=== PATIENT | male | born 1940 | race Caucasian/White ===

== ENCOUNTER 2018-06-16 09:47 | Observation (INO) | payer OTHER ==
--- NOTE | 2018-06-16 10:32 | C.PDOC ---
History Of Present Illness 77 year old male with PMHx of HTN and diabetes presents for evaluation of throat pain x8 days associated with subjective fever, chills, and runny nose. The patient reports prior PMD visit for current symptoms who prescribed gabapentin and fexofenadine with no improvement. Pt denies CP, SOB, ABD pain, cough, nausea, vomiting, diarrhea, and any other associated symptoms. Time Seen by Provider: 06/16/18 10:05 Chief Complaint (Nursing): ENT Problem History Per: Patient History/Exam Limitations: no limitations Onset/Duration Of Symptoms: Days Current Symptoms Are (Timing): Still Present Location Of Pain: Throat Associated Symptoms: Fever, Chills, Nasal Congestion, Other (throat pain. ). denies: Cough, Vomiting Ear Symptoms: Bilateral: None Recent travel outside of the [place]: No Past Medical History Vital Signs: Last Vital Signs Temp 99.9 F H 06/16/18 09:51 Pulse 89 06/16/18 09:51 Resp 18 06/16/18 09:51 BP 130/61 06/16/18 09:51 Pulse Ox 98 06/16/18 09:51 - Medical History PMH: Arthritis Family History: States: Unknown Family Hx - Social History Hx Alcohol Use: No Hx Substance Use: No - Immunization History Hx Tetanus Toxoid Vaccination: No Hx Influenza Vaccination: Yes Hx Pneumococcal Vaccination: No Review Of Systems Constitutional: Positive for: Fever (subjective. ), Chills ENT: Positive for: Nose Congestion, Throat Pain Cardiovascular: Negative for: Chest Pain Respiratory: Negative for: Cough, Shortness of Breath Gastrointestinal: Negative for: Nausea, Vomiting, Abdominal Pain, Diarrhea Physical Exam - Physical Exam Appears: Well, Non-toxic, No Acute Distress Skin: Warm, Dry Head: Atraumatic, Normacephalic Eye(s): bilateral: Normal Inspection, right: Other ((+) hearing aid in the RT ear.) Oral Mucosa: Moist Throat: No Erythema, Other ((+) minimal cervical adenopathy.) Neck: Normal ROM, Supple Chest: Symmetrical, No Deformity Cardiovascular: Rhythm Regular, No Murmur Respiratory: Normal Breath Sounds, No Rales, No Rhonchi, No Wheezing Gastrointestinal/Abdominal: Normal Exam, Soft, No Tenderness Extremity: Bilateral: Atraumatic, Normal Color And Temperature, Normal ROM Neurological/Psych: Oriented x3, Normal Speech, Normal Cognition ED Course And Treatment - Laboratory Results Result Diagrams: 06/16/18 12:34 06/16/18 12:34 ECG: Interpreted By Me, Viewed By Me ECG Rhythm: Sinus Rhythm, R BBB Interpretation Of ECG: no EKG to compare to Rate From EC O2 Sat by Pulse Oximetry: 98 (RA) Pulse Ox Interpretation: Normal - Other Rad CXR X-Ray: Viewed By Me, Read By Radiologist Interpretation: FINDINGS: LUNGS: No evidence of focal infiltrate or consolidation in the lungs noted in this portable exam. PLEURA: No significant pleural effusion identified, no pneumothorax apparent. CARDIOVASCULAR: No aortic atherosclerotic calcification present. Normal cardiac size. No pulmonary vascular congestion. OSSEOUS STRUCTURES: No significant abnormalities. VISUALIZED UPPER ABDOMEN: Normal. OTHER FINDINGS: None. IMPRESSION: No definite radiographic evidence of pneumonia. Medical Decision Making Medical Decision Making: Progress/Update: Multiple attempts to contact Dr. Painter with no answer. Progress/Update: Multiple attempts to contact PMD Dr. Painter, left voice message at the office. Pt treated with pharyngitis. (-) STREP throat Pt discharged with instructions on treatment with pharyngitis without significant findings. Discussed with the pt the importance of following up with PMD and possible ENT for further diagnosis. As pt was being prepared for discharge home, a low BP was noticed. Initially systolic was 130, after multiple BP pressure checks systolic dropped to 90. Will draw labs, take a rectal temp and re-evaluate the pt. Pt remained hypertensive after fluid bolus for 50ml. Will administer a second fluid bolus and consider pt admission for observation with the potential that this case may turn into sepsis Refractory hypertension not resolving with fluids Will admit to hospitalist. 2:15 : Spoke with Dr. Lakhwinder Hayden who agreed to patient admission Disposition Counseled Patient/Family Regarding: Need For Followup, Rx Given - Disposition Referrals: Jody Painter MD [Family Provider] - Disposition: HOSPITALIZED Disposition Time: 11:54 Condition: GUARDED Prescriptions: Ibuprofen [Motrin] 600 mg PO TID #15 tab Penicillin VK [Penicillin VK Tab] 500 mg PO TID #30 tab Instructions: Sore Throat, Adult (DC) Forms: [facility] (Czech), Gen Discharge Inst Czech - POA Present On Arrival: None - Clinical Impression Clinical Impression: Hypotension - Scribe Statement The provider has reviewed the documentation as recorded by the Scribe (Blank Vázquez) Provider Attestation: All medical record entries made by the Scribe were at my direction and personally dictated by me. I have reviewed the chart and agree that the record accurately reflects my personal performance of the history, physical exam, medical decision making, and the department course for this patient. I have also personally directed, reviewed, and agree with the discharge instructions and disposition. Decision To Admit - Pt Status Changed To: Hospital Disposition Of: Observation - . Bed Request Type: Telemetry Admitting Physician: Lakhwinder Hayden Patient Diagnosis: Hypotension
[2018-06-16] MEDS ORDERED: Sodium Chloride 0.9% 500 ML IV ONE ×6 (12:20→13:25)
[2018-06-16 12:37] LABS: BASO # 0.1 K/uL (0.0-0.2); BASO % 0.6 % (0.0-2.0); HEMOGLOBIN 10.2 g/dL (12.0-18.0); LYMPH # 2.1 K/uL (1.0-4.3); LYMPH % 17.4 % (20.0-40.0); MEAN CELL VOLUME 85.2 fL (80.0-94.0); MEAN CORPUSCULAR HEMOGLOBIN 29.4 pg (27.0-31.0); MEAN CORPUSCULAR HGB CONC 34.5 g/dL (33.0-37.0); MEAN PLATELET VOLUME 7.2 fL (7.2-11.7); MONO # 1.5 K/uL (0.0-0.8); MONO % 12.3 % (0.0-10.0); NEUT # 8.6 K/uL (1.8-7.0); NEUT % 69.7 % (50.0-75.0); RBC 3.47 Mil/uL (4.40-5.90); RED CELL DISTRIBUTION WIDTH 13.9 % (11.5-14.5); WHITE BLOOD COUNT 12.3 K/uL (4.8-10.8)
[2018-06-16 12:48] LABS: ALB/GLOB RATIO 1.5 (1.0-2.1); ALBUMIN 4.2 g/dL (3.5-5.0); CALCIUM 9.1 mg/dl (8.6-10.4)
[2018-06-16 12:56] LABS: VENOUS BLOOD GAS BASE EXCESS -0.8 mmol/L (0.0-2.0); VENOUS BLOOD GAS PCO2 37 mmHg (40-60); VENOUS BLOOD GAS PO2 34 mm/Hg (30-55); VENOUS BLOOD PH 7.41 (7.32-7.43)
[2018-06-16] MEDS ORDERED: Sodium Chloride 0.9% 1,000 ML IV ONE (13:17)
--- NOTE | 2018-06-16 14:27 | RAD ---
Date of service: 06/16/2018 HISTORY: Sepsis Patient COMPARISON: No prior. TECHNIQUE: 1 view obtained. FINDINGS: LUNGS: No evidence of focal infiltrate or consolidation in the lungs noted in this portable exam PLEURA: No significant pleural effusion identified, no pneumothorax apparent. CARDIOVASCULAR: No aortic atherosclerotic calcification present. Normal cardiac size. No pulmonary vascular congestion. OSSEOUS STRUCTURES: No significant abnormalities. VISUALIZED UPPER ABDOMEN: Normal. OTHER FINDINGS: None. IMPRESSION: No definite radiographic evidence of pneumonia.
[2018-06-16 14:39] LABS: VENOUS BLOOD GAS BASE EXCESS -2.3 mmol/L (0.0-2.0); VENOUS BLOOD GAS PCO2 38 mmHg (40-60); VENOUS BLOOD GAS PO2 43 mm/Hg (30-55); VENOUS BLOOD PH 7.38 (7.32-7.43)
--- NOTE | 2018-06-16 15:29 | CP.PCM.HP ---
<Rojelio Castellon - Last Filed: 06/16/18 16:18> History of Present Illness - History of Present Illness History of Present Illness: Medicine H&P for Dr. Hayden's service CC: Pharyngeal Pain HPI: Patient is a 77 yo male w/ PMH of HTN, HLD, and DM2 presents to emergency department for evaluation of pain in his throat for past 8 days. Patient went to PMD who prescribed an oral antibiotic approximately 5 days ago. Patient states he has been compliant with medications but the pain persists. Stated he took Tylenol for fever but the temperature would spike again. Patient states he also had episodes of vomiting and diarrhea yesterday. Denies chills, chest pain, sob, n/v, constipation or diarrhea, dysuria at this time. ROS: positive for pharyngeal pain, fevers PMH: HTN, HLD, and DM2 PSH: Denies FH: Mother and Father (DM2) Allergies: NKDA Meds: See MAR Social: Denies tobacco use, admits to etoh use when he was much younger, denies illicit drug use; Retired worked as dental hygienist Code: Full code Present on Admission - Present on Admission Any Indicators Present on Admission: No Review of Systems - Review of Systems All systems: reviewed and no additional remarkable complaints except Review of Systems: see HPI Past Patient History - Infectious Disease Hx of Infectious Diseases: None - Past Social History Smoking Status: Never Smoked - ENDOCRINE/METABOLIC Hx Diabetes Mellitus Type 2: Yes - MUSCULOSKELETAL/RHEUMATOLOGICAL Hx Arthritis: Yes - PSYCHIATRIC Hx Substance Use: No - SURGICAL HISTORY Hx Surgeries: Yes Other/Comment: prostate surgery - ANESTHESIA Hx Anesthesia: Yes Hx Anesthesia Reactions: No Hx Malignant Hyperthermia: No Meds Home Medications: Home Medication List Medication Instructions Recorded Confirmed Type Ibuprofen [Motrin] 600 mg PO TID #15 tab 06/16/18 Rx Acetaminophen [Tylenol 325mg tab] 650 mg PO Q6 PRN tab 06/17/18 Rx Allergies/Adverse Reactions: Allergies Allergy/AdvReac Type Severity Reaction Status Date / Time No Known Allergies Allergy Verified 06/16/18 09:56 Physical Exam - Constitutional Appears: Non-toxic, No Acute Distress - Head Exam Head Exam: NORMAL INSPECTION, NORMOCEPHALIC - Eye Exam Eye Exam: EOMI, Normal appearance. absent: Nystagmus - ENT Exam ENT Exam: Mucous Membranes Dry Additional comments: apthous ulcer appearing sore in right lateral tongue on ventral surface no erythema or exudates in posterior pharynx - Neck Exam Neck exam: Positive for: Full Rom, Normal Inspection. Negative for: Lymphadenopathy - Respiratory Exam Respiratory Exam: Clear to Auscultation Bilateral, NORMAL BREATHING PATTERN. absent: Rhonchi, Wheezes - Cardiovascular Exam Cardiovascular Exam: REGULAR RHYTHM, +S1, +S2 - GI/Abdominal Exam GI & Abdominal Exam: Normal Bowel Sounds, Soft. absent: Diminished Bowel Sounds, Distended, Tenderness - Extremities Exam Extremities exam: Positive for: normal inspection. Negative for: calf tenderness, pedal edema - Neurological Exam Neurological exam: Alert, Normal Gait, Oriented x3 - Psychiatric Exam Psychiatric exam: Normal Affect, Normal Mood - Skin Skin Exam: Dry, Intact, Normal Color Results - Vital Signs Recent Vital Signs: Last Vital Signs Temp 98.4 F 06/16/18 15:18 Pulse 60 06/16/18 15:18 Resp 17 06/16/18 15:18 BP 115/53 L 06/16/18 15:18 Pulse Ox 95 06/16/18 15:18 - Labs Result Diagrams: 06/16/18 12:34 06/16/18 12:34 Labs: Laboratory Results - last 24 hr 06/16/18 06/16/18 06/16/18 10:36 12:34 12:34 WBC 12.3 H RBC 3.47 L Hgb 10.2 L Hct 29.6 L MCV 85.2 MCH 29.4 MCHC 34.5 RDW 13.9 Plt Count 194 MPV 7.2 Neut % (Auto) 69.7 Lymph % (Auto) 17.4 L [place] % (Auto) 12.3 H Eos % (Auto) 0.0 Baso % (Auto) 0.6 Neut # (Auto) 8.6 H Lymph # (Auto) 2.1 [place] # (Auto) 1.5 H Eos # (Auto) 0.0 Baso # (Auto) 0.1 pO2 VBG pH VBG pCO2 VBG HCO3 VBG Total CO2 VBG O2 Sat (Calc) VBG Base Excess VBG Potassium Glucose Lactate Sodium 133 Potassium 3.7 Chloride 97 L Carbon Dioxide 25 Anion Gap 15 BUN 18 Creatinine 1.4 Est GFR ( Amer) 60 Est GFR (Non-Af Amer) 49 Random Glucose 102 Calcium 9.1 Total Bilirubin 0.9 AST 35 ALT 42 Alkaline Phosphatase 92 Total Protein 7.1 Albumin 4.2 Globulin 2.9 Albumin/Globulin Ratio 1.5 Venous Blood Potassium Grp A Beta Strep Ag Negative 06/16/18 06/16/18 12:48 14:30 WBC RBC Hgb Hct MCV MCH MCHC RDW Plt Count MPV Neut % (Auto) Lymph % (Auto) [place] % (Auto) Eos % (Auto) Baso % (Auto) Neut # (Auto) Lymph # (Auto) [place] # (Auto) Eos # (Auto) Baso # (Auto) pO2 34 43 VBG pH 7.41 7.38 VBG pCO2 37 L 38 L VBG HCO3 23.5 22.6 VBG Total CO2 24.6 23.7 VBG O2 Sat (Calc) 70.2 H 83.9 H VBG Base Excess -0.8 L -2.3 L VBG Potassium 3.5 L 3.0 L Glucose 97 101 Lactate 1.7 0.8 Sodium 134.0 136.0 Potassium Chloride 99.0 105.0 Carbon Dioxide Anion Gap BUN Creatinine Est GFR ( Amer) Est GFR (Non-Af Amer) Random Glucose Calcium Total Bilirubin AST ALT Alkaline Phosphatase Total Protein Albumin Globulin Albumin/Globulin Ratio Venous Blood Potassium 3.5 L 3.0 L Grp A Beta Strep Ag Assessment & Plan - Assessment and Plan (Free Text) Assessment: 77 yo male w/ PMH of DM2, HTN, HLD admitted for pharyngeal pain and hypotension. Plan: Pharyngeal Pain CXR 4-6: no evidence of PNA CT scan of neck w/ contrast pending likely viral infection Valtrex po q12h Tylenol 650mg po q6h prn for fever Hypotension s/p 1.5L bolus on maintenance fluids 122mls/hr likely 2/2 recent diarrhea and vomiting while continuing to take bp meds DM2 ISS sliding scale ACHS Gabapentin 300mg po daily Hx of HLD [place] 3 acid 2gm po bid Hx of HTN Held home bp meds in setting of hypotension PPx GI- not indicated DVT- SCDs, ambulatory <Lakhwinder Hayden - Last Filed: 06/17/18 17:51> Results - Vital Signs Recent Vital Signs: Last Vital Signs Temp 98.2 F 06/17/18 07:20 Pulse 70 06/17/18 07:20 Resp 18 06/17/18 07:20 BP 122/51 L 06/17/18 07:20 Pulse Ox 99 06/17/18 07:20 - Labs Result Diagrams: 06/17/18 08:43 06/17/18 08:43 Labs: Laboratory Results - last 24 hr 06/16/18 06/17/18 06/17/18 21:13 08:43 08:43 WBC 10.1 RBC 3.36 L Hgb 10.0 L Hct 28.8 L MCV 85.9 MCH 29.7 MCHC 34.6 RDW 13.7 Plt Count 177 MPV 7.6 Neut % (Auto) 73.5 Lymph % (Auto) 13.9 L [place] % (Auto) 11.9 H Eos % (Auto) 0.1 Baso % (Auto) 0.6 Neut # (Auto) 7.4 H Lymph # (Auto) 1.4 [place] # (Auto) 1.2 H Eos # (Auto) 0.0 Baso # (Auto) 0.1 Sodium 135 Potassium 3.3 L Chloride 101 Carbon Dioxide 24 Anion Gap 13 BUN 16 Creatinine 0.8 Est GFR ( Amer) > 60 Est GFR (Non-Af Amer) > 60 POC Glucose (mg/dL) 151 H Random Glucose 124 H D Calcium 8.6 Total Bilirubin 0.8 AST 48 ALT 34 Alkaline Phosphatase 95 Total Protein 6.5 Albumin 3.9 Globulin 2.6 Albumin/Globulin Ratio 1.5 Influenza Typ A,B (EIA) 06/17/18 06/17/18 10:36 11:54 WBC RBC Hgb Hct MCV MCH MCHC RDW Plt Count MPV Neut % (Auto) Lymph % (Auto) [place] % (Auto) Eos % (Auto) Baso % (Auto) Neut # (Auto) Lymph # (Auto) [place] # (Auto) Eos # (Auto) Baso # (Auto) Sodium Potassium Chloride Carbon Dioxide Anion Gap BUN Creatinine Est GFR ( Amer) Est GFR (Non-Af Amer) POC Glucose (mg/dL) 151 H Random Glucose Calcium Total Bilirubin AST ALT Alkaline Phosphatase Total Protein Albumin Globulin Albumin/Globulin Ratio Influenza Typ A,B (EIA) Negative for flu a/b Attending/Attestation - Attestation I have personally seen and examined this patient.: Yes I have fully participated in the care of the patient.: Yes I have reviewed all pertinent clinical information: Yes Notes (Text): 06/17/18 17:50 This is a late entry Patient was seen and examined in the ER on 06/16/[address] Castellon. History, Physical, Assessment and Plan, and all orders were gone over with Dr. Castellon. Lakhwinder Hayden D.O.
[2018-06-16] MEDS ORDERED: Iodixanol 320 MG/ML 100 ML BOTTLE IV ONE (15:50)
[2018-06-16] MEDS ORDERED: Sodium Chloride 0.9% 1,000 ML ONE (16:32)
[2018-06-16] MEDS: Sodium Chloride 0.9% 1,000 ML IV SCH (16:33)
[2018-06-16] MEDS: (Novolin R) Insulin Human Regular 100 units/ml vial SC SCH ×2 (17:12→21:30)
--- NOTE | 2018-06-16 17:13 | CT ---
Date of service: 06/16/2018 PROCEDURE: CT NECK WITH CONTRAST HISTORY: pharyngeal pain COMPARISON: None available. TECHNIQUE: CT of the neck with intravenous contrast. Coronal and sagittal reformats generated. Intravenous contrast dose: 100 mL of Visipaque 320 intravenously. Radiation dose: Total exam DLP = 448.73 mGy-cm. This CT exam was performed using one or more of the following dose reduction techniques: Automated exposure control, adjustment of the mA and/or kV according to patient size, and/or use of iterative reconstruction technique. FINDINGS: NASOPHARYNX: Unremarkable. SUPRAHYOID NECK: 4 millimeter round calcification noted at left wall of the oropharynx just above the level of the aryepiglottic folds. Otherwise unremarkable oropharynx, oral cavity, parapharyngeal space and retropharyngeal space. INFRAHYOID NECK: Unremarkable larynx, hypopharynx, and supraglottic space. Vocal cords intact. MASS: None. GLANDS: Parotid and submandibular glands unremarkable. Normal size thyroid gland, without nodule. LYMPH NODES: Normal. No lymphadenopathy. CERVICAL SPINE: No fracture or focal lesion. VASCULAR STRUCTURES: Unremarkable. OTHER FINDINGS: None. IMPRESSION: Round 4 millimeter calcification at the left aspect of the pharynx just above the level of the aryepiglottic folds noted. No evidence of mass lesion or significant lymphadenopathy in the neck.
[2018-06-16] MEDS: Omega-3-Acid Ethyl Esters 1 GM Cap PO SCH (17:50)
[2018-06-17] MEDS: Sodium Chloride 0.9% 1,000 ML IV SCH ×2 (01:49→10:56)
[2018-06-17] MEDS: (Novolin R) Insulin Human Regular 100 units/ml vial SC SCH ×2 (07:35→12:56)
[2018-06-17 08:30] VITALS: BP 122/51; PULSE 70; RESP 18; TEMP 98.2; O2SAT 99
[2018-06-17 08:58] LABS: BASO # 0.1 K/uL (0.0-0.2); BASO % 0.6 % (0.0-2.0); EOS % 0.1 % (0.0-4.0); LYMPH # 1.4 K/uL (1.0-4.3); LYMPH % 13.9 % (20.0-40.0); MEAN CELL VOLUME 85.9 fL (80.0-94.0); MEAN CORPUSCULAR HEMOGLOBIN 29.7 pg (27.0-31.0); MEAN CORPUSCULAR HGB CONC 34.6 g/dL (33.0-37.0); MEAN PLATELET VOLUME 7.6 fL (7.2-11.7); MONO # 1.2 K/uL (0.0-0.8); MONO % 11.9 % (0.0-10.0); NEUT # 7.4 K/uL (1.8-7.0); NEUT % 73.5 % (50.0-75.0); RBC 3.36 Mil/uL (4.40-5.90); RED CELL DISTRIBUTION WIDTH 13.7 % (11.5-14.5); WHITE BLOOD COUNT 10.1 K/uL (4.8-10.8)
[2018-06-17 09:14] LABS: ALB/GLOB RATIO 1.5 (1.0-2.1); ALBUMIN 3.9 g/dL (3.5-5.0); ALT/SGPT 34 U/L (21-72); AST/SGOT 48 U/L (17-59); BLOOD UREA NITROGEN 16 mg/dL (9-20); CALCIUM 8.6 mg/dl (8.6-10.4); GFR NON-AFRICAN AMERICAN > 60
[2018-06-17] MEDS: Omega-3-Acid Ethyl Esters 1 GM Cap PO SCH (09:55)
[2018-06-17] MEDS ORDERED: Potassium Chloride 20 mEq ER Tab PO SCH (10:00)
--- NOTE | 2018-06-17 10:47 | CP.PCM.DIS ---
Provider - Provider Date of Admission: 06/16/18 14:13 Attending physician: Lakhwinder Hayden MD Primary care physician: Dr. Gann Consults: None Time Spent in preparation of Discharge (in minutes): 40 Hospital Course - Lab Results Lab Results: Most Recent Lab Values WBC 10.1 K/uL (4.8-10.8) 06/17/18 08:43 RBC 3.36 Mil/uL (4.40-5.90) L 06/17/18 08:43 Hgb 10.0 g/dL (12.0-18.0) L 06/17/18 08:43 Hct 28.8 % (35.0-51.0) L 06/17/18 08:43 MCV 85.9 fL (80.0-94.0) 06/17/18 08:43 MCH 29.7 pg (27.0-31.0) 06/17/18 08:43 MCHC 34.6 g/dL (33.0-37.0) 06/17/18 08:43 RDW 13.7 % (11.5-14.5) 06/17/18 08:43 Plt Count 177 K/uL (130-400) 06/17/18 08:43 MPV 7.6 fL (7.2-11.7) 06/17/18 08:43 Neut % (Auto) 73.5 % (50.0-75.0) 06/17/18 08:43 Lymph % (Auto) 13.9 % (20.0-40.0) L 06/17/18 08:43 [place] % (Auto) 11.9 % (0.0-10.0) H 06/17/18 08:43 Eos % (Auto) 0.1 % (0.0-4.0) 06/17/18 08:43 Baso % (Auto) 0.6 % (0.0-2.0) 06/17/18 08:43 Neut # (Auto) 7.4 K/uL (1.8-7.0) H 06/17/18 08:43 Lymph # (Auto) 1.4 K/uL (1.0-4.3) 06/17/18 08:43 [place] # (Auto) 1.2 K/uL (0.0-0.8) H 06/17/18 08:43 Eos # (Auto) 0.0 K/uL (0.0-0.7) 06/17/18 08:43 Baso # (Auto) 0.1 K/uL (0.0-0.2) 06/17/18 08:43 pO2 43 mm/Hg (30-55) 06/16/18 14:30 VBG pH 7.38 (7.32-7.43) 06/16/18 14:30 VBG pCO2 38 mmHg (40-60) L 06/16/18 14:30 VBG HCO3 22.6 mmol/L 06/16/18 14:30 VBG Total CO2 23.7 mmol/L (22-28) 06/16/18 14:30 VBG O2 Sat (Calc) 83.9 % (40-65) H 06/16/18 14:30 VBG Base Excess -2.3 mmol/L (0.0-2.0) L 06/16/18 14:30 VBG Potassium 3.0 mmol/L (3.6-5.2) L 06/16/18 14:30 Sodium 136.0 mmol/l (132-148) 06/16/18 14:30 Chloride 105.0 mmol/L (98-107) 06/16/18 14:30 Glucose 101 mg/dl (75-110) 06/16/18 14:30 Lactate 0.8 mmol/L (0.7-2.1) 06/16/18 14:30 Sodium 135 mmol/L (132-148) 06/17/18 08:43 Potassium 3.3 mmol/L (3.6-5.2) L 06/17/18 08:43 Chloride 101 mmol/L (98-107) 06/17/18 08:43 Carbon Dioxide 24 mmol/L (22-30) 06/17/18 08:43 Anion Gap 13 (10-20) 06/17/18 08:43 BUN 16 mg/dL (9-20) 06/17/18 08:43 Creatinine 0.8 mg/dL (0.8-1.5) 06/17/18 08:43 Est GFR ( Amer) > 60 06/17/18 08:43 Est GFR (Non-Af Amer) > 60 06/17/18 08:43 POC Glucose (mg/dL) 151 mg/dL (65-110) H 06/16/18 21:13 Random Glucose 124 mg/dL (75-110) H D 06/17/18 08:43 Calcium 8.6 mg/dl (8.6-10.4) 06/17/18 08:43 Total Bilirubin 0.8 mg/dL (0.2-1.3) 06/17/18 08:43 AST 48 U/L (17-59) 06/17/18 08:43 ALT 34 U/L (21-72) 06/17/18 08:43 Alkaline Phosphatase 95 U/L (38-126) 06/17/18 08:43 Total Protein 6.5 g/dL (6.3-8.3) 06/17/18 08:43 Albumin 3.9 g/dL (3.5-5.0) 06/17/18 08:43 Globulin 2.6 gm/dL (2.2-3.9) 06/17/18 08:43 Albumin/Globulin Ratio 1.5 (1.0-2.1) 06/17/18 08:43 Venous Blood Potassium 3.0 mmol/L (3.6-5.2) L 06/16/18 14:30 Grp A Beta Strep Ag Negative (NEGATIVE) 06/16/18 10:36 - Hospital Course Hospital Course: Hospitalist Discharge Summary Patient was seen and examined with the assistance of TRACI Interpretor ID # [id number] Very pleasant Croatian speaking male who presented to [facility] ER for evaluation of severe pharyngitis. Rapid Strep was negative. Rapid Influenza was negative. Chest X Ray did not show any active disease. Soft Tissue Neck CT did not show any evidence of infection or lymphadenopathy. His blood pressure was low in the ER but responded to NS bolus x 2. He was given Valacyclovir 2 gm PO Q12H x 2 doses for the apthous ulcer noted in the ventral surface of the right tongue. He had fever overnight 06/16/18 that responded to Tylenol. Confirmed that he had enough of his home medications. He stated that he had follow up already scheduled for his evaluation of his prostate. He was instructed to make sure that he followed up with his PMD Dr. Gann. Upon Full ROS: NO chest pain NO palpitations NO SOB/Cough Soreness in throat is better and now very slight on the right side NO n/v/d/c NO burning/pain with urination NO lightheadedness/dizziness NO headaches NO new changes in vision NO new changes in hearing (uses bilateral hearing aids) NO paresthesias Exam: General: AAOx3, NAD HEENT: NCA, EOMI, PERRLA, NO lymphadenopathy noted, NO pharyngeal erythema/exudate, NO thyromegaly, Right Lateral Ventral Surface of Tongue there is an apthous ulcer Cardio: NS1 and NS2, NO M/R/G Resp: CTA B/L, NO R/R/W GI: BSx4, Soft, NT, ND, NO guarding/rebound tenderness Ext: Capillary Refill is 2 seconds, NO edema, Pulses are strong and equal, NO ulceration of the feet/toes, Normal warmth/coloration Neuro: CN II through XII are grossly intact Assessments: 1). Pharyngitis Status: Resolved 2). Hypotension Status: Resolved 3). Hx DM 2 Status: Chronic 4). Hx HLD Status: Chronic 5). Hx HTN Status: Chronic The following instructions will need to be provided to patient in Croatian upon discharge: 1). Schedule follow up with your Primary Care Physician Dr. Gann in the next 7 to 10 days. 2). Follow up with your Urologist Dr. Carrasco as instructed by him for your Prostate. 3). You may use Tylenol 500 mg, 1 tablet by mouth ONLY as needed for pain or ONLY as needed for fever, every 6 hours 4). You stated that you had enough of your home medications for High Blood Pressure, High Cholesterol and Diabetes. Please continue to take them as instructed by Dr. Gann. 5). Please make sure that you remain well hydrated with water throughout the day. You should get at least 3 liters of water daily. 6). Please make sure that you are keeping your hands clean throughout the day. Before bringing them anywhere near your face, please make sure that they are washed with warm soap and water and then dried. 7). Please take care and be well. Las siguientes instrucciones debern proporcionarse al paciente en espaol al momento del eladio: 1). Programe el seguimiento con vasquez mdico de atencin primaria, el Dr. Gann, en los prximos 7 a 10 [place]. 2). Deanna un seguimiento con vasquez urlogo, el Dr. Carrasco, segn las instrucciones de l para vasquez prstata. 3). Puede usar Tylenol 500 mg, 1 tableta por va oral SOLAMENTE segn sea necesario para el dolor o SOLAMENTE segn sea necesario para la fiebre, cada 6 horas 4). Declar que lashaun suficientes medicamentos de vasquez casa para la presin arterial eladio, el colesterol alto y la diabetes. Por favor contine tomndolos kev lo indique el Dr. Gann. 5). Por favor, asegrese de permanecer zakiya hidratado con agua colin todo el da. Debe obtener al menos 3 litros de agua al da. 6). Por favor, asegrese de mantener dhara deepti limpias colin todo el da. Antes de acercarlos a la myranda, asegrese de lavarlos con agua y jabn tibios y luego secarlos. 7). Por favor cuidate y estar zakiya. Lakhwinder Hayden D.O. Discharge Exam - Head Exam Head Exam: NORMAL INSPECTION, NORMOCEPHALIC Discharge Plan - Discharge Medications Prescriptions: Ibuprofen [Motrin] 600 mg PO TID #15 tab - Follow Up Plan Condition: GUARDED Disposition: HOME/ ROUTINE Instructions: Sore Throat, Adult (DC) Additional Instructions: The following instructions will need to be provided to patient in Croatian upon discharge: 1). Schedule follow up with your Primary Care Physician Dr. Gann in the next 7 to 10 days. 2). Follow up with your Urologist Dr. Carrasco as instructed by him for your Prostate. 3). You may use Tylenol 500 mg, 1 tablet by mouth ONLY as needed for pain or ONLY as needed for fever, every 6 hours 4). You stated that you had enough of your home medications for High Blood Pressure, High Cholesterol and Diabetes. Please continue to take them as instructed by Dr. Gann. 5). Please make sure that you remain well hydrated with water throughout the day. You should get at least 3 liters of water daily. 6). Please make sure that you are keeping your hands clean throughout the day. Before bringing them anywhere near your face, please make sure that they are washed with warm soap and water and then dried. 7). Please take care and be well. Lakhwinder Hayden D.O. Referrals: Jody Painter MD [Family Provider] -
== END 2018-06-17 13:45 | disposition home or self-care (01) ==
LOC: C.ER 09:47 → C.9E 14:13 → C.6T 16:56
PROVIDERS: ADMIT Family Medicine; ATTEND Family Medicine
DX: J02.9 Acute pharyngitis, unspecified (principal); I95.9 Hypotension, unspecified; E11.9 Type 2 diabetes mellitus without complications; E78.5 Hyperlipidemia, unspecified; I10 Essential (primary) hypertension; K12.0 Recurrent oral aphthae; Z83.3 Family history of diabetes mellitus
CPT/HCPCS: 36415; 70491; 71045; 80053; 82803; 82948; 85025; 87040; 87070; 87430; 87804; 96365; 99285; G0378; J0696; J7030; J7040; Q9967

== ENCOUNTER 2018-07-27 18:36 | Emergency (ER) | payer OTHER ==
[2018-07-27 18:41] VITALS: PULSE 80
[2018-07-27] MEDS ORDERED: Naproxen 550 mg Tab PO STA (19:41)
[2018-07-27] MEDS ORDERED: Naproxen 550 mg Tab PO ONE (19:49)
--- NOTE | 2018-07-27 19:50 | C.PDOC ---
History Of Present Illness 77 year old male presents with subjective fever intermittently since yesterday, worse today, associated with joint pain and body aches. Denies cough, vomiting, nausea, or dysuria. Chief Complaint (Nursing): Fever History Per: Patient History/Exam Limitations: no limitations Onset/Duration Of Symptoms: Intermittent Episodes, Worse Since (Today), Other (Yesterday) Current Symptoms Are (Timing): Still Present Location Of Pain: Diffuse Myalgias Sick Contacts (Context): None Associated Symptoms: Fever (Subjective). denies: Cough, Nausea, Vomiting, Other (dysuria) Recent travel outside of the [place]: No Past Medical History Reviewed: Historical Data, Nursing Documentation, Vital Signs Vital Signs: Last Vital Signs Temp 98.5 F 07/27/18 18:39 Pulse 80 07/27/18 18:39 Resp 18 07/27/18 18:39 BP 126/73 07/27/18 18:39 Pulse Ox 100 07/27/18 18:39 Primary Care Provider: Jody Painter - Medical History PMH: Arthritis Family History: States: Unknown Family Hx - Social History Hx Alcohol Use: No Hx Substance Use: No - Immunization History Hx Tetanus Toxoid Vaccination: No Hx Influenza Vaccination: Yes Hx Pneumococcal Vaccination: No Review Of Systems Constitutional: Positive for: Fever (Subjective) Cardiovascular: Negative for: Chest Pain, Palpitations Respiratory: Negative for: Cough Gastrointestinal: Negative for: Nausea, Vomiting Genitourinary: Negative for: Dysuria Musculoskeletal: Positive for: Other (Joint pain, body aches) Neurological: Negative for: Weakness, Numbness Physical Exam - Physical Exam Appears: Non-toxic Skin: Normal Color, Warm Head: Atraumatic, Normacephalic Eye(s): bilateral: Normal Inspection Oral Mucosa: Moist Throat: Normal, No Erythema, No Exudate Neck: Normal, Supple Chest: Symmetrical, No Tenderness Cardiovascular: Rhythm Regular Respiratory: Normal Breath Sounds, No Rales, No Rhonchi, No Wheezing Gastrointestinal/Abdominal: Soft, No Tenderness Neurological/Psych: Oriented x3, Normal Speech ED Course And Treatment - Laboratory Results Result Diagrams: 07/27/18 19:58 07/27/18 19:58 O2 Sat by Pulse Oximetry: 100 (Room air) Pulse Ox Interpretation: Normal Progress Note: Blood work and urinalysis ordered. Naproxen administered. Disposition Counseled Patient/Family Regarding: Diagnosis - Disposition Referrals: [facility] [Outside] Disposition: HOME/ ROUTINE Disposition Time: 20:42 Condition: STABLE Prescriptions: Ciprofloxacin [Cipro] 1 tab PO BID #14 tab Naproxen 375 mg PO Q8 #20 tablet Instructions: Urinary Tract Infections in Adults Forms: [facility] (Welsh), Gen Discharge Inst Lao Print Language: CITIZ[place] - POA Present On Arrival: None - Clinical Impression Clinical Impression: UTI (urinary tract infection) - Scribe Statement The provider has reviewed the documentation as recorded by the Scribrosario Charles All medical record entries made by the Delvisibrosario were at my direction and person ally dictated by me. I have reviewed the chart and agree that the record accurately reflects my personal performance of the history, physical exam, medical decision making, and the department course for this patient. I have also personally directed, reviewed, and agree with the discharge instructions and disposition.
[2018-07-27 20:04] LABS: BASO % 0.2 % (0.0-2.0); EOS # 0.1 K/uL (0.0-0.7); EOS % 0.5 % (0.0-4.0); HEMOGLOBIN 10.2 g/dL (12.0-18.0); LYMPH % 9.3 % (20.0-40.0); MEAN CORPUSCULAR HEMOGLOBIN 28.3 pg (27.0-31.0); MEAN CORPUSCULAR HGB CONC 33.9 g/dL (33.0-37.0); MEAN PLATELET VOLUME 7.2 fL (7.2-11.7); MONO # 0.9 K/uL (0.0-0.8); MONO % 9.1 % (0.0-10.0); NEUT # 8.4 K/uL (1.8-7.0); NEUT % 80.9 % (50.0-75.0); PLATELET COUNT 136 K/uL (130-400); RBC 3.59 Mil/uL (4.40-5.90); RED CELL DISTRIBUTION WIDTH 15.3 % (11.5-14.5); WHITE BLOOD COUNT 10.4 K/uL (4.8-10.8)
[2018-07-27 20:14] LABS: MEAN CELL VOLUME 83.6 fL (80.0-94.0)
[2018-07-27 20:20] LABS: SQUAMOUS EPITHIAL < 1 /hpf (0-5); URINE AMORPHOUS SEDIMENT RARE /ul (<OCC); URINE BACTERIA RARE (<OCC); URINE BILIRUBIN NEGATIVE (NEGATIVE); URINE BLOOD 1+ (NEGATIVE); URINE CLARITY Hazy (Clear); URINE COLOR Amber (YELLOW); URINE GLUCOSE (UA) NORMAL (Normal); URINE LEUKOCYTE ESTERASE 1+ Leu/uL (Negative); URINE PROTEIN 1+ mg/dL (NEGATIVE)
[2018-07-27 20:24] LABS: ALB/GLOB RATIO 1.3 (1.0-2.1); ALBUMIN 3.6 g/dL (3.5-5.0); ALT/SGPT 57 U/L (21-72); AST/SGOT 67 U/L (17-59); BLOOD UREA NITROGEN 20 mg/dL (9-20); CALCIUM 9.3 mg/dl (8.6-10.4); GFR NON-AFRICAN AMERICAN > 60
[2018-07-27 20:54] LABS: LYMPHOCYTE 8 % (20-40); MONOCYTE 1 % (0-10); NEUTROPHIL 91 % (50-75); PLATELET ESTIMATE NORMAL (NORMAL); TOTAL CELLS COUNTED 100
[2018-07-27 20:55] LABS: ANISOCYTOSIS SLIGHT; HYPOCHROMIC SLIGHT; POLYCHROMIC SLIGHT
[2018-07-27 21:11] VITALS: BP 108/58; RESP 20; TEMP 98.6; O2SAT 98
== END 2018-07-27 21:10 | disposition home or self-care (01) ==
LOC: C.ER 18:36
DX: N39.0 Urinary tract infection, site not specified (principal); M19.90 Unspecified osteoarthritis, unspecified site